=== PATIENT | female | born 1960 | race Asian ===

== ENCOUNTER 2017-06-25 13:22 | Outpatient (CLI) | payer OTHER ==
[~2017-06-25 13:22] MED LIST: ALLEGRA ALRG180 M1 PO; ASA LO-DOSE81 MG PO; CLOP75TA2 PO; METFORMIN ER1000 MG PO
== END 2017-06-25 21:54 | disposition home or self-care (01) ==
LOC: RAD 13:22
DX: Z12.31 Encounter for screening mammogram for malignant neoplasm of breast (principal); Z13.820 Encounter for screening for osteoporosis

== ENCOUNTER 2018-06-17 14:05 | Outpatient (CLI) | payer OTHER | END 2018-06-17 20:27 | disposition home or self-care (01) | LOC: RESP 14:05 | DX: R00.2 Palpitations (principal) | CPT/HCPCS: 93225 ==

== ENCOUNTER 2019-01-12 11:45 | Outpatient (CLI) | payer OTHER | END 2019-01-12 23:59 | disposition home or self-care (01) | LOC: RAD 11:45 | DX: M25.461 Effusion, right knee (principal) ==

== ENCOUNTER 2019-01-31 08:51 | Outpatient (CLI) | payer OTHER | END 2019-01-31 22:50 | disposition home or self-care (01) | LOC: MRI 08:51 | DX: M25.461 Effusion, right knee (principal) ==

== ENCOUNTER 2019-09-21 10:19 | Outpatient (CLI) | payer BC | END 2019-09-21 22:36 | disposition home or self-care (01) | LOC: RAD 10:19 | DX: M25.551 Pain in right hip (principal); M25.561 Pain in right knee ==

== ENCOUNTER 2020-03-07 11:12 | Outpatient (CLI) | payer OTHER | END 2020-03-07 19:30 | disposition home or self-care (01) | LOC: RAD 11:12 | DX: M19.90 Unspecified osteoarthritis, unspecified site (principal); M25.562 Pain in left knee; M25.561 Pain in right knee; M25.552 Pain in left hip; M25.551 Pain in right hip ==

== ENCOUNTER 2020-09-14 13:48 | Inpatient (IN) | payer OTHER ==
[2020-09-14] VITALS (8 sets, daily range): BP systolic 137–196; BP diastolic 64–102; TEMP 98.3–98.6; Ht 175.3 cm; Wt 113.9 kg
[~2020-09-14] VITALS: Ht 175.3 cm; Wt 113.9 kg
[2020-09-14 14:31] LABS: PLATELET COUNT 310 K/uL (152-353)
[2020-09-14 14:47] LABS: POTASSIUM 4.4 mmol/L (3.6-5.2)
[2020-09-14 14:51] LABS: PARTIAL THROMBOPLASTIN TIME 23.4 SECONDS (24.5-33.6)
[2020-09-14] MEDS ORDERED: LISI10TA11 PO (18:45)
[2020-09-14] MEDS ORDERED: LISITAB PO (18:45)
[2020-09-14] MEDS ORDERED: GLIP10TA55 PO (18:46)
[2020-09-14] MEDS ORDERED: SIMV20TA2 PO (18:47)
[2020-09-15] VITALS: BP 163/80; TEMP 97.7
[2020-09-15 04:00] VITALS: BP 122/67; TEMP 98.1
[2020-09-15 04:58] LABS: PLATELET COUNT 310 K/uL (152-353)
[2020-09-15 05:15] LABS: POTASSIUM 3.9 mmol/L (3.6-5.2)
[2020-09-15 08:00] VITALS: BP 124/78; TEMP 97.9
--- NOTE | 2020-09-15 09:21 | NUR ---
09/15/20 0910 PT INSTRUCTED ON [facility] AND PT DIAGNOSIS TIA/CVA HOW TOBACCO CAN AFFECT ARTERIES BY CONSTRICTING FLOW FLOW.PT STATES SHE HAS BEEN CHEWING TOBACCO SINCE SHE WAS A LITTLE GIRL.TOLD HER SHE CAN SPEAK WITH ABOUT HAVE TOBACCO CHEW IN ROOM PT STATES IS AWARE SHE CHEWS TOBACCO.CALL LIGHT WITHIN REACH.CC
--- NOTE | 2020-09-15 10:25 | NUR ---
09/15/20 1020 SITTING ON SIDE OF BED NO C/O VOICED.CC
--- NOTE | 2020-09-15 11:28 | NUR ---
09/15/20 1128 PT LYING IN BED MAGNESIUM INFUSION STARTED WITHOUT DIFFICULTY TO RT FOREARM.NAD NOTED.FAMILY MEMBER PRESENT IN ROOM.CC
[2020-09-15 12:00] VITALS: BP 129/74; TEMP 97.6
--- NOTE | 2020-09-15 13:46 | NUR ---
09/15/20 1340 PT SITTING UP ON SIDE OF BED TALKING WITH FAMILY MEMBER NO C/O PAIN OR DISCOMFORT.CC
--- NOTE | 2020-09-15 14:49 | NUR ---
09/15/20 1420 OUT OF BED TO RESTROO TO TAKE SHOWER USING WALKER DRAGS RT LEG WHILE AMBULATING.FAMILY PRESENT IN ROOM.CC
[2020-09-15 16:00] VITALS: BP 141/71; TEMP 97.9
--- NOTE | 2020-09-15 17:27 | NUR ---
09/15/[address] CM HERE IN TO SEE PATIENT DISCUSS PLAN OF CARE,DR. CM TOLD PT SHE DOESNOT WANT HER TO HAVE TOBACCO CHEW AT THIS TIME.TOLD PT SHE MAY HAVE NICOTINE PATCH IF NEEDED.ALSO PT INSTRUCTED ON COLLECTING URINE FOR CLEAN CATCH UA.FAMILY PRESENT IN ROOM.CC
--- NOTE | 2020-09-15 17:52 | NUR ---
09/15/20 1740 PT CLEANED PERNEIIUM UA COLLECTED.PT STATED SHE HAD SOME BLOOD COME FROM RECTUM,NOTED SMALL AMOUNT IN TRASH ON BRIEF.TOLD HHER I WILL LET DR. CM KNOW SINCE SHE IS ON BLOOD THINNER.CC
--- NOTE | 2020-09-15 18:32 | NUR ---
09/15/201831 PLACED NEW LEADS ON PT FOR TELE.NO BLOOD NOTED TO BE COMING OUT RECTALLY.BUT FOUND BLOOD SMALL AMOUNT COMING FROM ABDOMEN WHERE PT RECEIVED LOVENOX INJECTION.APPLIED BANDAID.CC
--- NOTE | 2020-09-15 18:41 | NUR ---
09/15/[address] HERNANDEZ NOTIFIED OF PT UA AND ALSO PT HAVING SMALL AMOUNT BLOOD AT INJECTION SITE.NO NEW ORDERS.CC
[2020-09-15 20:00] VITALS: BP 133/63; TEMP 98.3
[2020-09-16] VITALS (7 sets, daily range): BP systolic 115–145; BP diastolic 52–83; TEMP 97.5–98.6
[2020-09-16 05:25] LABS: PLATELET COUNT 307 K/uL (152-353)
[2020-09-16 05:55] LABS: POTASSIUM 3.8 mmol/L (3.6-5.2)
--- NOTE | 2020-09-16 19:01 | NUR ---
spoke with pt and her mother at bedside about her dc plans. Pt stated she did not want home physical therapy services but is requesting speech therapy. She stated that she has medicaid only and would like an emergency button and personal aid support services if possible. Dr. Verdin is in agreement, will refer to [facility].
--- NOTE | 2020-09-16 20:00 | NUR ---
ROUNDS MADE. PM ASSESSMENT COMPLETED. PT STATES THAT SHE IS "FEELING BETTER". PT REVIEWED ALL INSTRUCTIONS THAT HAD GAVE HER. PT DOES HAVE DROUPING TO HER RIGHT SIDE OF MOUTH. PT'S SON IS PRESENT. PT IS SITTING UP ON SIDE OF THE BED. BP IS 118/68. PT ABLE TO MOVE ALL EXTREMITIES. PUPILS EQUAL AND REACTIVE. BLOOD SUGAR WAS 250. INSULIN GIVEN ORDERED. NO COMPLAINTS. TELEMETRY INTACT WITH SINUS RHYTHM. INSTRUCTED PATIENT TO CALL FOR ASSISTANCE. PT VOICED UNDERSTANDING.
--- NOTE | 2020-09-16 22:00 | NUR ---
PT WAS AROUSED FROM SLEEPING AND WAS GIVEN LOVENOX ORDERED SQ TO ABDOMEN. PT ADMITTED WITH TIA. INSTRUCTED PT ON LOVENOX AND PURPOSE/SIDE EFFECTS/ AND S/SX OF TIA. PT VOICED UNDERSTANDING.
--- NOTE | 2020-09-17 00:34 | NUR ---
ROUNDS MADE PT WITH NO COMPLAINTS. CALL LIGHT IN EASY REACH.
[2020-09-17 03:48] VITALS: BP 108/71; TEMP 97.4
[2020-09-17 08:00] VITALS: BP 128/79; TEMP 97.7
--- NOTE | 2020-09-17 10:01 | NUR ---
PT INFORMATION WAS ACCESSED BY MESS COOKCLERK JONY Durham THROUGH [facility] TO ASSIST PT WITH NEW PATIENT PAPERWORK FOR [facility] NEUROLOGIST.
--- NOTE | 2020-09-17 10:04 | NUR ---
PT WAS OFFERED HOME HEALTH SERVICES FOR INHOUSE AIDS. PT DECLINED
[2020-09-17 12:00] VITALS: BP 112/77; TEMP 98.1
== END 2020-09-17 12:22 | disposition home or self-care (01) | DRG 66 ==
LOC: ED 13:48 → MED/SURG 15:45
PROVIDERS: Hospitalist; ADMIT Family Medicine; ATTEND Family Medicine
DX: I63.81 Other cerebral infarction due to occlusion or stenosis of small artery (principal); R47.81 Slurred speech; I10 Essential (primary) hypertension; I16.0 Hypertensive urgency; F17.200 Nicotine dependence, unspecified, uncomplicated; R53.81 Other malaise; Z91.14 Patient's other noncompliance with medication regimen; E11.9 Type 2 diabetes mellitus without complications; E66.8 Other obesity
CPT/HCPCS: 36415; 80053; 80061; 81000; 82550; 83036; 83735; 83880; 84100; 84443; 84484; 85027; 85610; 85730; 87635; 93005; 94760; 99284; A9576; J1650; J1815; J3475; J3490; U0003

== ENCOUNTER 2020-09-18 09:16 | Outpatient (CLI) | payer OTHER ==
[~2020-09-18 09:16] MED LIST changes: +GLIP10TA55 PO; +LISI10TA11 PO; +LISITAB PO; +SIMV20TA2 PO
== END 2020-09-18 21:17 | disposition home or self-care (01) ==
LOC: CT 09:16
PROVIDERS: ATTEND Family Medicine
DX: G45.9 Transient cerebral ischemic attack, unspecified (principal)
CPT/HCPCS: Q9963

== ENCOUNTER 2023-01-26 13:38 | Outpatient (CLI) | payer OTHER ==
[~2023-01-26 13:38] MED LIST changes: -ASA LO-DOSE81 MG PO; +ASA LOW DOSE81 MG PO
[2023-01-26 14:01] LABS: PLATELET COUNT 311 K/uL (152-353)
[2023-01-26 14:14] LABS: POTASSIUM 3.8 mmol/L (3.6-5.2)
[2023-01-26] MEDS ORDERED: MOUNJARO SC (18:14)
[2023-01-26] MEDS ORDERED: METF500T PO (18:15)
== END 2023-01-26 19:05 | disposition home or self-care (01) ==
LOC: LABW 13:38
PROVIDERS: ATTEND Nurse Practitioner Family
DX: R07.89 Other chest pain (principal)
CPT/HCPCS: 36415; 80053; 82550; 82553; 84484; 85027; 93005

== ENCOUNTER 2023-01-26 14:53 | Inpatient (IN) | payer OTHER ==
[~2023-01-26] VITALS: Ht 175.3 cm; Wt 114.8 kg
[2023-01-26 15:01] VITALS: BP 127/75; TEMP 97.7
[2023-01-26 17:22] VITALS: BP 126/73; TEMP 98.2; Ht 175.3 cm; Wt 114.8 kg
[2023-01-26] MEDS ORDERED: MOUNJARO SC (18:14)
[2023-01-26] MEDS ORDERED: METF500T PO (18:15)
[2023-01-26 19:41] VITALS: BP 109/64; TEMP 98.1
[2023-01-26 23:36] VITALS: BP 119/70; TEMP 98.6
[2023-01-27 03:35] VITALS: BP 103/59; TEMP 98.3
[2023-01-27 04:23] LABS: PLATELET COUNT 266 K/uL (152-353)
[2023-01-27 05:46] LABS: POTASSIUM 3.7 mmol/L (3.6-5.2)
[2023-01-27 08:00] VITALS: BP 106/64; TEMP 98.5
[2023-01-27 09:55] LABS: POTASSIUM 3.6 mmol/L (3.6-5.2)
[2023-01-27 11:52] VITALS: BP 111/69; TEMP 98.8
[2023-01-27 15:52] VITALS: BP 117/69; TEMP 98.6
[2023-01-27 19:47] VITALS: BP 122/66; TEMP 98.9
[2023-01-28] VITALS: BP 121/70; TEMP 98.2
[2023-01-28 03:35] VITALS: BP 118/67; TEMP 98.2
[2023-01-28 05:01] LABS: PLATELET COUNT 265 K/uL (152-353)
[2023-01-28 05:17] LABS: POTASSIUM 3.6 mmol/L (3.6-5.2)
[2023-01-28 08:04] VITALS: BP 133/74; TEMP 98.7
[2023-01-28 12:00] VITALS: BP 152/85; TEMP 98.1
[2023-01-28 15:51] VITALS: BP 136/77; TEMP 98.5
[2023-01-28 20:00] VITALS: BP 139/77; TEMP 98.6
[2023-01-29] VITALS: BP 130/70; TEMP 98.7
[2023-01-29 04:00] VITALS: BP 119/66; TEMP 98.7
[2023-01-29 07:09] LABS: PLATELET COUNT 283 K/uL (152-353)
[2023-01-29 07:22] LABS: POTASSIUM 3.8 mmol/L (3.6-5.2)
[2023-01-29 08:00] VITALS: BP 126/73; TEMP 98.4
[2023-01-29 11:56] VITALS: BP 129/69; TEMP 98.2
[2023-01-29 16:00] VITALS: BP 144/79; TEMP 98
[2023-01-29 18:29] LABS: POTASSIUM 3.5 mmol/L (3.6-5.2)
[2023-01-29 20:08] VITALS: BP 154/74; TEMP 98.5
[2023-01-30] VITALS: BP 125/64; TEMP 98.7
[2023-01-30 04:00] VITALS: BP 122/61; TEMP 98.2
[2023-01-30 07:23] LABS: PLATELET COUNT 273 K/uL (152-353)
[2023-01-30 07:34] LABS: POTASSIUM 3.1 mmol/L (3.6-5.2)
[2023-01-30 07:58] VITALS: BP 122/66; TEMP 98.1
[2023-01-30 12:00] VITALS: BP 153/84; TEMP 98
[2023-01-30 16:01] VITALS: BP 148/78; TEMP 97.8
[2023-01-30 20:00] VITALS: BP 158/87; TEMP 98.4
[2023-01-31] VITALS (7 sets, daily range): BP systolic 124–173; BP diastolic 65–86; TEMP 98–98.7
[2023-01-31 03:40] LABS: PLATELET COUNT 258 K/uL (152-353)
[2023-01-31 03:57] LABS: POTASSIUM 3.2 mmol/L (3.6-5.2)
[2023-02-01 03:51] VITALS: BP 130/62; TEMP 99
[2023-02-01 07:47] LABS: PLATELET COUNT 261 K/uL (152-353)
[2023-02-01 07:54] LABS: POTASSIUM 3.5 mmol/L (3.6-5.2)
[2023-02-01 08:00] VITALS: BP 127/72; TEMP 98.1
[2023-02-01 12:04] VITALS: BP 148/77; TEMP 97.9
[2023-02-01 13:14] LABS: POTASSIUM 3.5 mmol/L (3.6-5.2)
[2023-02-01 16:00] VITALS: BP 139/74; TEMP 98.3
[2023-02-01 20:00] VITALS: BP 154/75; TEMP 98.8
[2023-02-01 23:36] VITALS: BP 137/62; TEMP 98.8
[2023-02-02 03:33] VITALS: BP 137/60; TEMP 98.6
[2023-02-02 04:51] LABS: PLATELET COUNT 266 K/uL (152-353)
[2023-02-02 04:53] LABS: POTASSIUM 3.9 mmol/L (3.6-5.2)
[2023-02-02 08:00] VITALS: BP 136/63; TEMP 98.5
[2023-02-02 12:00] VITALS: BP 150/83; TEMP 98.9
== END 2023-02-02 15:55 | disposition home or self-care (01) | DRG 444 ==
LOC: ED 14:53 → MED/SURG 15:42
PROVIDERS: ADMIT Family Medicine; ATTEND Family Medicine
DX: K80.80 Other cholelithiasis without obstruction (principal); K85.80 Other acute pancreatitis without necrosis or infection; N17.8 Other acute kidney failure; K76.89 Other specified diseases of liver; D64.89 Other specified anemias; E87.8 Other disorders of electrolyte and fluid balance, not elsewhere classified; Z72.0 Tobacco use; E86.0 Dehydration; I10 Essential (primary) hypertension; E78.49 Other hyperlipidemia; E11.9 Type 2 diabetes mellitus without complications; N39.498 Other specified urinary incontinence; K59.09 Other constipation; R41.0 Disorientation, unspecified; F03.90 Unspecified dementia, unspecified severity, without behavioral disturbance, psychotic disturbance, mood disturbance, and anxiety; I25.10 Atherosclerotic heart disease of native coronary artery without angina pectoris; R11.2 Nausea with vomiting, unspecified; E88.09 Other disorders of plasma-protein metabolism, not elsewhere classified; J32.8 Other chronic sinusitis; R60.0 Localized edema
CPT/HCPCS: 36415; 36600; 80048; 80053; 80061; 81000; 82550; 82805; 82948; 83690; 83735; 83880; 84100; 84439; 84443; 84481; 85027; 87040; 96361; 96365; 96366; 99281; J3475; J3490; P9047

== ENCOUNTER 2023-02-05 09:27 | Outpatient (CLI) | payer OTHER ==
[~2023-02-05 09:27] MED LIST changes: +METF500T PO; +MOUNJARO SC
[2023-02-05 10:33] LABS: PLATELET COUNT 269 K/uL (152-353)
[2023-02-05 10:39] LABS: POTASSIUM 3.5 mmol/L (3.6-5.2)
== END 2023-02-05 19:09 | disposition home or self-care (01) ==
LOC: LABW 09:27
PROVIDERS: ATTEND Family Medicine
DX: N28.89 Other specified disorders of kidney and ureter (principal)
CPT/HCPCS: 36416; 80053; 85027

== ENCOUNTER 2023-03-19 10:29 | Outpatient (CLI) | payer OTHER ==
[2023-03-19 11:32] LABS: POTASSIUM 4.2 mmol/L (3.6-5.2)
== END 2023-03-19 19:24 | disposition home or self-care (01) ==
LOC: LABW 10:29
PROVIDERS: ATTEND Specialist
DX: I10 Essential (primary) hypertension (principal); I25.118 Atherosclerotic heart disease of native coronary artery with other forms of angina pectoris
CPT/HCPCS: 36415; 80048